=== PATIENT | male | born 2000 | race Caucasian/White ===

== ENCOUNTER 2024-02-14 13:16 | Emergency (ER) | payer BC, SELFPAY ==
[2024-02-14 13:17] VITALS: BP 149/87; PULSE 107; RESP 19; TEMP 36.5; O2SAT 99
--- NOTE | 2024-02-14 13:18 | ED.GIBLEED ---
HPI - GI Bleed General Chief complaint: GI Bleed <Mary Gonsalez PA-C - Last Filed: 02/14/24 13:23> Stated complaint: blood in stool <Mary Gonsalez PA-C - Last Filed: 02/14/24 13:23> Time Seen by Provider: 02/14/24 13:18 <ROSALBA Ty Last Filed: 02/14/24 13:23> Focused HPI: Patient is a 23 y/o male who presents to the ED with c/o rectal bleeding. Patient reported he had diarrhea around 11am while at work and states about a quarter of the BM contents was bright red blood. He reported having slight discomfort with the BM and afterwards in his rectum. Has never had bleeding before. Unknown if he has ever had hemorrhoids. Denies significant abd pain, does occasionally have a pain in his left upper abdomen. Denies N/V, fevers. No anticoagulation. GENERAL: Well-appearing, morbidly obese with BMI of 42.8, and in no acute distress. HEAD: Normocephalic, atraumatic. CHEST: Clear to auscultation. ?No respiratory distress. HEART: Regular rate and rhythm.? ABD: No tenderness. Normoactive BS. NEURO: ?Alert and oriented x3. Patient screened in triage and initial orders placed.? ?Additional care and disposition to be based upon?diagnostic testing and treatment. <Mary Gonsalez PA-C - Last Filed: 02/14/24 13:23> Source: patient <Mary Gonsalez PA-C - Last Filed: 02/14/24 13:23> Mode of arrival: ambulatory <Mary Gonsalez PA-C - Last Filed: 02/14/24 13:23> Limitations: no limitations <ROSALBA Ty Last Filed: 02/14/24 13:23> History of Present Illness HPI Narrative: Agree with HPI. Loose stool with some bright red blood. Mild left upper quadrant cramping just prior to this. <Lopez Cruz MD - Last Filed: 02/14/24 19:20> Related Data Allergies/Adverse reactions: Allergies Allergy/AdvReac Type Severity Reaction Status Date / Time No Known Allergies Allergy Verified 02/14/24 14:50 <Mary Gonsalez PA-C - Last Filed: 02/14/24 13:23> Review of Systems Review of Systems: All systems reviewed & are unremarkable except as noted in HPI and below <Lopez Cruz MD - Last Filed: 02/14/24 19:20> Constitutional: Constitutional: Reports no additional constitutional complaints <Lopez Cruz MD - Last Filed: 02/14/24 19:20> Cardiovascular: Cardiovascular: Reports no additional cardiovascular complaints <Lopez Cruz MD - Last Filed: 02/14/24 19:20> Respiratory: Respiratory: Reports no additional respiratory complaints <Lopez Cruz MD - Last Filed: 02/14/24 19:20> Gastrointestinal: Gastrointestinal: Reports abdominal pain, Reports diarrhea, Denies nausea and Denies vomiting <Lopez Cruz MD - Last Filed: 02/14/24 19:20> Genitourinary: Genitourinary: Reports no additional male genitourinary complaints <Lopez Cruz MD - Last Filed: 02/14/24 19:20> Exam Narrative: GENERAL: Well-appearing, well-nourished, and in no acute distress. HEAD: Normocephalic, atraumatic. ENT: Mucous membranes moist. CHEST: Clear to auscultation. No respiratory distress. HEART: Regular rate and rhythm. Normal peripheral pulses. ABDOMEN: Soft, nontender, nondistended. Normal appearing rectum without hemorrhoid or fissure. EXTREMITIES: Normal range of motion. NEURO: Alert and oriented x3. PSYCH: Normal mood and affect. <Lopez Cruz MD - Last Filed: 02/14/24 19:20> Course Course Emergency Course: Patient given reassurance. Recommend establishing care with PCP and should this reoccur he can not see a GI doctor. Bleeding could be from colitis or diverticula. Will start on Augmentin. <Lopez Cruz MD - Last Filed: 02/14/24 19:20> Vital Signs Vital signs: Vital Signs Temperature 97.7 F 02/14/24 13:17 Pulse Rate 107 H 02/14/24 13:17 Respiratory Rate 19 02/14/24 13:17 Blood Pressure 149/87 H 02/14/24 13:17 Pulse Oximetry 99 02/14/24 13:17 Oxygen Delivery R
[2024-02-14 13:49] LABS: Alanine Aminotransferase 54 U/L (6-50); Albumin Level 4.6 g/dL (3.5-5.1); Alkaline Phosphatase 55 U/L (38-126); Anion Gap 11 mmol/L (4-12); Aspartate Amino Transferase 35 U/L (17-59); Bilirubin,Total 0.5 mg/dL (0.2-1.3); Blood Urea Nitrogen 15 mg/dL (9-20); Calcium 9.4 mg/dL (8.4-10.2); Carbon Dioxide 27 mmol/L (22-30); Chloride 101 mmol/L (98-107); Estimated CRCL calculation 205 ml/min; Estimated Glomerular Filt Rate > 60; Glucose 116 mg/dL (65-110); Potassium 4.1 mmol/L (3.4-5.0); Sodium 139 mmol/L (137-145)
[2024-02-14 13:52] LABS: Basophils Percent Auto 0.2 % (0.2-1.2); Eosinophils Absolute Auto 0.1 K/mm3 (0-0.3); Eosinophils Percent Auto 0.7 % (0-4.4); Hematocrit 46.1 % (42.0-52.0); Hemoglobin 15.1 g/dL (14.0-18.0); Immature Granulocyte Absolute 0.06 K/mm3 (0.00-0.031); Immature Granulocyte Percent A 0.6 % (0-0.5); Lymphocytes Absolute Auto 2.31 K/mm3 (0.9-3.2); Mean Corpuscular HGB Conc 32.8 g/dl (32-36); Mean Corpuscular Hemoglobin 28.9 pg (26-34); Mean Corpuscular Volume 88.3 fl (80-100); Mean Platelet Volume 12.9 fl (7.4-10.4); Monocytes Absolute Auto 0.5 K/mm3 (0.1-0.6); Monocytes Percent Auto 4.7 % (2.6-8.5); Neutrophils Absolute Auto 7.5 K/mm3 (1.3-6.7); Neutrophils Percent Auto 71.8 % (45.5-73.1); Platelet Count Result 235 k/mm3 (150-375); Red Blood Count 5.22 M/mm3 (4.6-6.20); Red Cell Distribution Width 13.2 % (11.5-14.5); White Blood Count 10.5 K/mm3 (4.5-10.0)
[2024-02-14 14:51] VITALS: BP 130/87; PULSE 84; RESP 15; O2SAT 98
[2024-02-14 16:31] VITALS: BP 130/72; PULSE 85; RESP 15; TEMP 36.7; O2SAT 97
== END 2024-02-14 16:33 | disposition home or self-care (01) ==
LOC: ANHED 15:54
PROVIDERS: Physician Assistant; Emergency Provider Emergency Medicine; PCP Pediatrics
DX: K52.9 Noninfective gastroenteritis and colitis, unspecified (principal); K62.5 Hemorrhage of anus and rectum; E66.01 Morbid (severe) obesity due to excess calories; Z68.41 Body mass index [BMI] 40.0-44.9, adult
CPT/HCPCS: 36415; 80053; 85025; 86850; 86900; 86901; 99283